=== PATIENT | male | born 1990 | race Hispanic/Latino ===

== ENCOUNTER 2022-06-25 20:47 | Emergency (ER) | payer SELFPAY ==
[~2022-06-25] VITALS: Ht 167.6 cm; Wt 100.0 kg
[~2022-06-25 20:47] MED LIST: BENADRYL 50MG C50 MG OR; TAGAMET300 MG OR; ULTRAM50 M1 PO
[2022-06-25] MEDS ORDERED: AMOXICILLIN500 MG PO (21:26)
[2022-06-25 21:30] VITALS: BP 132/78
== END 2022-06-25 21:40 | disposition home or self-care (01) | DRG 159 ==
LOC: ED 20:47
DX: K04.7 Periapical abscess without sinus (principal)